=== PATIENT | male | born 1965 | race Caucasian/White ===

== ENCOUNTER 2019-10-11 17:23 | Emergency (ER) | payer BC ==
[2019-10-11] MEDS ORDERED: Sodium Chloride 0.9% 10 ML Syringe FLUSH PRN ×2 (18:15→18:19)
[2019-10-11] MEDS ORDERED: Dexamethasone 10 MG/ML SDV IM ONE (18:16)
[2019-10-11] MEDS ORDERED: Iopamidol 612 MG/ML 100 ML Bottle IVPUSH ONE (18:19)
[2019-10-11] MEDS ORDERED: Dexamethasone 10 MG/ML SDV IVPUSH ONE (18:32)
--- NOTE | 2019-10-11 18:43 | EDM.PDOC ---
ED HPI GENERAL MEDICAL PROBLEM - General Chief Complaint: ENT Problem Stated Complaint: SORE THROAT Time Seen by Provider: 10/11/19 17:47 Source of Information: Reports: Patient, RN Notes Reviewed History Limitations: Reports: No Limitations - History of Present Illness INITIAL COMMENTS - FREE TEXT/NARRATIVE: Patient is a 54-year-old male who presents to the ED for the evaluation of his difficulty swallowing and sore throat. Patient states for the last 2 weeks, he has been unable to swallow much at all, and feels like he has a lump in his throat. He has been evaluated in the clinic at [facility] for this, and states he has scheduled for an outpatient CT scan tomorrow. He notes that he did have a dental implant done during this time, thought it was due to dental issues, but he was placed on antibiotics, amoxicillin and metronidazole, for this, and nothing seems to really be getting better. He states that he was trying to eat yogurt today, and he just feels like he is not able to swallow much at all anymore. Patient states that he is not had any tests for strep throat, he denies any fever/chills, difficulty breathing, states that the throat is somewhat painful but not overly bothersome, what got him worried was the difficulty swallowing. Patient does have a history of hypothyroidism, and takes half of the lowest dose of thyroid medications available clinically. Patient did appreciate some mild swelling in his neck as well, he thought maybe the right side of his neck was a little bit more swollen. - Related Data Allergies Allergy/AdvReac Type Severity Reaction Status Date / Time No Known Allergies Allergy Verified 10/11/19 17:40 Home Meds: Home Meds Levothyroxine 12.5 mg PO DAILY 10/11/19 [History] Past Medical History Endocrine/Metabolic History: Reports: Hypothyroidism Social & Family History - Tobacco Use Smoking Status *Q: Never Smoker Second Hand Smoke Exposure: No - Caffeine Use Caffeine Use: Reports: None - Recreational Drug Use Recreational Drug Use: No ED ROS ENT - Review of Systems Review Of Systems: Comprehensive ROS is negative, except as noted in HPI. ED EXAM, ENT - Physical Exam Exam: See Below Exam Limited By: No Limitations General Appearance: Alert, WD/WN, No Apparent Distress Mouth/Throat: Normal Inspection, Normal Gums, Normal Lips, Normal Oropharynx, Normal Teeth, Throat Pain (mild), Throat Swelling (feels like this throat is swollen), Tonsillar Swelling. No: Tonsillar Erythema, Uvular Deviation, Uvular Edema Head: Atraumatic, Normocephalic Neck: Normal Inspection (the anterior neck does look a little more full.), Supple, Non-Tender, Full Range of Motion, Lymphadenopathy (R) (1 single shoddy node appreciated under the right mandible) Respiratory/Chest: No Respiratory Distress, Lungs Clear, Normal Breath Sounds, No Accessory Muscle Use, Chest Non-Tender Cardiovascular: Normal Peripheral Pulses, Regular Rate, Rhythm, No Murmur GI/Abdominal: Normal Bowel Sounds, Soft, Non-Tender, No Distention, No Mass Extremities: Normal Inspection, Normal Capillary Refill Neurological: Alert, Oriented, Normal Cognition, No Motor/Sensory Deficits Psychiatric: Normal Affect, Normal Mood Skin: Warm, Dry, Intact, Normal Color, No Rash Course - Vital Signs Last Recorded V/S: Last Vital Signs Temp 97.3 F 10/11/19 17:36 Pulse 82 10/11/19 17:36 Resp 16 10/11/19 17:36 BP 138/89 10/11/19 17:36 Pulse Ox 99 10/11/19 17:36 - Orders/Labs/Meds Orders: Active Orders 24 hr Category Date Time Status Peripheral IV Care [RC] . DIRECTED Care 10/11/19 18:15 Ordered CULTURE STREP A CONFIRMATION [] Stat Lab 10/11/19 18:04 Results STREP SCRN A RAPID W CULT CONF [] Stat Lab 10/11/19 17:50 Ordered Sodium Chloride 0.9% [Normal Saline] 1,000 ml Med 10/11/19 19:18 Ordered IV ONETIME Sodium Chloride 0.9% [Saline Flush] Med 10/11/19 18:15 Ordered 10 ml FLUSH ASDIRECTED PRN Sodium Chloride 0.9% [Saline Flush] Med 10/11/19 18:19 Active 10 ml FLUSH ONETIME PRN Peripheral IV Insertion Adult [OM.PC] Routine Oth 10/11/19 18:15 Ordered Medication Orders Sodium Chloride (Normal Saline) 1,000 mls @ 999 mls/hr IV ONETIME ONE Stop: 10/11/19 20:18 Last Admin: 10/11/19 19:33 Dose: 999 mls/hr Documented by: Sodium Chloride (Saline Flush) 10 ml FLUSH ASDIRECTED PRN PRN Reason: Keep Vein Open Last Admin: 10/11/19 18:47 Dose: 10 ml Documented by: WENDY Sodium Chloride (Saline Flush) 10 ml FLUSH ONETIME PRN PRN Reason: Keep Vein Open Labs: Laboratory Tests 10/11/19 10/11/19 Range/Units 18:29 18:29 WBC 4.89 (4.23-9.07) K/mm3 RBC 5.24 (4.63-6.08) M/mm3 Hgb 15.8 (13.7-17.5) gm/dl Hct 46.5 (40.1-51.0) % MCV 88.7 (79.0-92.2) fl MCH 30.2 (25.7-32.2) pg MCHC 34.0 (32.2-35.5) g/dl RDW Std Deviation 42.8 (35.1-43.9) fL Plt Count 175 (163-337) K/mm3 MPV 9.9 (9.4-12.3) fl Neut % (Auto) 58.7 (34.0-67.9) % Lymph % (Auto) 26.2 (21.8-53.1) % Callahan % (Auto) 10.0 (5.3-12.2) % Eos % (Auto) 4.9 (0.8-7.0) Baso % (Auto) 0.2 (0.1-1.2) % Neut # (Auto) 2.87 (1.78-5.38) K/mm3 Lymph # (Auto) 1.28 L (1.32-3.57) K/mm3 Callahan # (Auto) 0.49 (0.30-0.82) K/mm3 Eos # (Auto) 0.24 (0.04-0.54) K/mm3 Baso # (Auto) 0.01 (0.01-0.08) K/mm3 Sodium 144 (136-145) mEq/L Potassium 3.8 (3.5-5.1) mEq/L Chloride 105 (98-107) mEq/L Carbon Dioxide 25 (21-32) mEq/L Anion Gap 17.8 H (5-15) BUN 16 (7-18) mg/dL Creatinine 1.4 H (0.7-1.3) mg/dL Est Cr Clr Drug Dosing 63.01 mL/min Estimated GFR (MDRD) 53 (>60) mL/min BUN/Creatinine Ratio 11.4 L (14-18) Glucose 99 (74-106) mg/dL Calcium 9.3 (8.5-10.1) mg/dL Total Bilirubin 0.5 (0.2-1.0) mg/dL AST 22 (15-37) U/L ALT 45 (16-63) U/L Alkaline Phosphatase 125 H (46-116) U/L Total Protein 7.9 (6.4-8.2) g/dl Albumin 4.2 (3.4-5.0) g/dl Globulin 3.7 gm/dL Albumin/Globulin Ratio 1.1 (1-2) TSH 3rd Generation 2.074 (0.358-3.74) uIU/mL Meds: Medications Generic Name Dose Route Start Last Admin Trade Name Freq PRN Reason Stop Dose Admin Sodium Chloride 1,000 mls @ 999 mls/hr 10/11/19 19:18 10/11/19 19:33 Normal Saline IV 10/11/19 20:18 999 mls/hr ONETIME ONE Administration Sodium Chloride 10 ml 10/11/19 18:15 10/11/19 18:47 Saline Flush FLUSH 10 ml ASDIRECTED PRN Administration Keep Vein Open Sodium Chloride 10 ml 10/11/19 18:19 Saline Flush FLUSH ONETIME PRN Keep Vein Open Discontinued Medications Generic Name Dose Route Start Last Admin Trade Name Freq PRN Reason Stop Dose Admin Dexamethasone 10 mg 10/11/19 18:16 10/11/19 18:40 Dexamethasone IM 10/11/19 18:17 Not Given ONETIME ONE Dexamethasone 10 mg 10/11/19 18:32 10/11/19 18:37 Dexamethasone IVPUSH 10/11/19 18:33 10 mg ONETIME ONE Administration Iopamidol 100 ml 10/11/19 18:19 10/11/19 18:47 Isovue-300 (61%) IVPUSH 10/11/19 18:20 100 ml ONETIME ONE Administration - Re-Assessments/Exams Free Text/Narrative Re-Assessment/Exam: 10/11/19 18:42 Patient presents to the ED for the evaluation of his difficulty swallowing. Patient was quite concerned as he was not even able to swallow yogurt. We will get a soft tissue CT scan to rule out abscess and/or abnormalities that would be causing some issues. Get some basic labs along with a thyroid study, and give him 10 mg dexamethasone IV to see if this helps some of the symptoms of his throat swelling. 10/11/19 19:[address] has been performed, and demonstrates mild mucosal thickening within the ethmoid sinuses, no adenopathy is seen within the neck, small normal- sized lymph nodes are seen. No parapharyngeal soft tissue swelling, no neck masses identified. Pre-vertebral soft tissue spaces are normal, and epiglottis is normal as well. There is mild degenerative change at C5-C6 with disc space narrowing, anterior and posterior osteophytes. Strep screen was negative, and laboratory evaluation is also within normal limits. Dehydration is demonstrated by elevated anion gap, and creatinine of 1.4. Patient be given 1 L fluids for further management. 10/11/19 20:06 Patient was made aware of the CT results. He will follow up with his provider in clinic for further evaluation. He states that the dexamethasone does seem to be helping the swollen throat feeling. Departure - Departure Time of Disposition: 20:07 Disposition: Home, Self-Care 01 Condition: Good Clinical Impression: Impaired swallowing associated with throat pain Pharyngitis Qualifiers: Pharyngitis/tonsillitis etiology: unspecified etiology Qualified Code(s): J02.9 - Acute pharyngitis, unspecified - Discharge Information *PRESCRIPTION DRUG MONITORING PROGRAM REVIEWED*: No *COPY OF PRESCRIPTION DRUG MONITORING REPORT IN PATIENT RACHELL: No Instructions: Dysphagia Eating Plan, Bite Size Food Referrals: Ivana Willard MD [Primary Care Provider] - Forms: ED Department Discharge Additional Instructions: You were evaluated in the ER today regarding your throat pain/swelling. You did have a CT done at today's visit, this is within normal limits, demonstrates no functional abnormalities that would be causing this throat swell ing. You did have a strep swab done at today's visit however this was negative, will be sent for culture for confirmation, you will be called and made notified if this is positive. Although as stated you are already on amoxicillin for a associated dental infection, and this would be an appropriate antibiotic for coverage for strep. Recommend you follow-up with your regular care provider for further evaluation. Suggest the possibility of ruling out obstructive sleep apnea as a possible etiology of throat swelling/pain. Please return to the ER at any time if her symptoms change or worsen. Sepsis Event Note (ED) - Evaluation Sepsis Screening Result: No Definite Risk - Focused Exam Vital Signs: Vital Signs Temp Pulse Resp BP Pulse Ox 10/11/19 17:36 97.3 F 82 16 138/89 99 - My Orders Last 24 Hours: My Active Orders 10/11/19 17:50 STREP SCRN A RAPID W CULT CONF [RM] Stat 10/11/19 18:04 CULTURE STREP A CONFIRMATION [RM] Stat 10/11/19 18:15 Peripheral IV Care [RC] . DIRECTED Sodium Chloride 0.9% [Saline Flush] 10 ml FLUSH ASDIRECTED PRN Peripheral IV Insertion Adult [OM.PC] Routine 10/11/19 18:19 Sodium Chloride 0.9% [Saline Flush] 10 ml FLUSH ONETIME PRN 10/11/19 19:18 Sodium Chloride 0.9% [Normal Saline] 1,000 ml IV ONETIME - Assessment/Plan Last 24 Hours: My Active Orders 10/11/19 17:50 STREP SCRN A RAPID W CULT CONF [RM] Stat 10/11/19 18:04 CULTURE STREP A CONFIRMATION [RM] Stat 10/11/19 18:15 Peripheral IV Care [RC] . DIRECTED Sodium Chloride 0.9% [Saline Flush] 10 ml FLUSH ASDIRECTED PRN Peripheral IV Insertion Adult [OM.PC] Routine 10/11/19 18:19 Sodium Chloride 0.9% [Saline Flush] 10 ml FLUSH ONETIME PRN 10/11/19 19:18 Sodium Chloride 0.9% [Normal Saline] 1,000 ml IV ONETIME
--- NOTE | 2019-10-11 19:06 | CT ---
CT neck Technique: Multiple axial sections through the neck were obtained from above the external auditory canals inferiorly through the lung apices. Intravenous contrast was utilized. Findings: Visualized lung apices are clear. Thyroid gland shows no discrete abnormality. Submandibular salivary glands and parotid salivary glands appear within normal limits. Mild mucosal thickening is noted within the ethmoid sinuses. No adenopathy is seen within the neck. Small normal-sized lymph nodes are seen. No parapharyngeal soft tissue swelling is seen. No neck mass is identified. Prevertebral soft tissues are normal. Epiglottis is normal. Bone window settings shows mild degenerative change primarily at C5-C6 with disc space narrowing, anterior and posterior osteophytes. Impression: 1. Mild mucosal thickening within the ethmoid sinuses. 2. Other findings as noted above. 3. Nothing acute is appreciated on CT study of the neck. Diagnostic code #2 Study was dictated in MDT
[2019-10-11] MEDS ORDERED: Sodium Chloride 0.9% 1,000 ML IV ONE (19:18)
== END 2019-10-11 20:55 | disposition home or self-care (01) ==
LOC: JD.ED 17:23
DX: J02.9 Acute pharyngitis, unspecified (principal); E03.9 Hypothyroidism, unspecified; Z79.899 Other long term (current) drug therapy
CPT/HCPCS: 36415; 70491; 80053; 84443; 85025; 87081; 87430; 96374; 99284; J1100; J7030; Q9967